=== PATIENT | female | born 1940 | race Hispanic/Latino ===

== ENCOUNTER 2018-12-26 10:50 | Outpatient (CLI) | payer MEDICARE ==
--- NOTE | 2018-12-26 11:54 | Ultrasound Report ---
Left breast ultrasound: Patient was recently diagnosed with right breast cancer. MR scan raises suspicion of possible left breast lesion in the medial breast. Ultrasound of the medial breast fail to identify any persistent echogenic findings to correspond with the MR findings. Impression: No corresponding lesion identified in the medial breast. Recommendation: Following discussions with Dr. Crystal the patient will be scheduled for an MRI directed biopsy.
== END 2018-12-26 10:51 | disposition home or self-care (01) ==
LOC: SPVWC 10:50
PROVIDERS: ATTEND Surgery
DX: C50.411 Malignant neoplasm of upper-outer quadrant of right female breast (principal); I10 Essential (primary) hypertension; Z90.710 Acquired absence of both cervix and uterus

== ENCOUNTER 2018-12-30 08:12 | Outpatient (CLI) | payer MEDICARE ==
--- NOTE | 2018-12-30 10:30 | Mammography Report ---
LEFT DIGITAL DIAGNOSTIC MAMMOGRAM: 12/30/18 08:12:00 CLINICAL: For clip placement immediately status post ultrasound biopsy. COMPARISON:Immediately status post MRI biopsy. FINDINGS: A biopsy clip is now identified in the upper outer quadrant and is concordant with the previously identified lesion. IMPRESSION: Concordant clip placement status post MRI biopsy. BI-RADS CATEGORY: 4--Suspicious Pathology pending.
--- NOTE | 2018-12-30 11:40 | Magnetic Resonance Report ---
MRI GUIDED VACUUM ASSISTED CORE BIOPSY LEFT BREAST: 12/30/18 08:12:00 CLINICAL: Newly diagnosed right breast cancer and a suspicious lesion in the left breast on 12/17/18 MRI. FINDINGS: Consent for the procedure was obtained. A Vibrant dynamic postcontrast series was performed on a 1.5 Lisbeth magnet using an 8 channel [employer] dedicated breast coil. 19 cc of Multihance was injected intravenously without incident and consent was obtained prior to the administration of contrast. The lesion was localized and targeted using [employer] biopsy software. The skin was anesthetized with 1% lidocaine and a small dermatotomy was made. 2% lidocaine was administered for deeper anesthesia. 9-G biopsy was performed with an [employer] vacuum assisted device. Imaging demonstrated satisfactory positioning of the probe and multiple cores were obtained. A clip was placed after confirmation of adequate sampling. The probe was removed and hemostasis was achieved with pressure to the site. A sterile dressing was applied. The patient tolerated the procedure well and there were no apparent complications. A two view mammogram demonstrated concordant clip placement. The patient left the department in good condition with instructions for would care and follow-up. IMPRESSION: Uncomplicated MRI biopsy with clip placement left breast.
== END 2018-12-30 08:13 | disposition home or self-care (01) ==
LOC: SPVIMAG 08:12
PROVIDERS: ATTEND Surgery
DX: C50.212 Malignant neoplasm of upper-inner quadrant of left female breast (principal); I10 Essential (primary) hypertension; I48.91 Unspecified atrial fibrillation; M19.90 Unspecified osteoarthritis, unspecified site; Z90.10 Acquired absence of unspecified breast and nipple; Z79.899 Other long term (current) drug therapy; Z79.01 Long term (current) use of anticoagulants; Z90.710 Acquired absence of both cervix and uterus
CPT/HCPCS: 19085; 77065; 88305; 88341; 88342; A4648; A9577

== ENCOUNTER 2019-02-19 05:45 | Day surgery (SDC) | payer MEDICARE ==
[~2019-02-19 05:45] MED LIST: ANCEF/STERILE WATER 2 GM/20 ML 2 GM/20 ML SYRINGE IV NR
[2019-02-19] MEDS ORDERED: NACL BACTERIOSTATIC INFILTRATI ONE (06:28)
[2019-02-19] MEDS ORDERED: LACTATED RINGERS 1,000 ML IV SCH (07:00)
[2019-02-19] MEDS ORDERED: VERSED IV NR (07:11)
[2019-02-19] MEDS ORDERED: SUBLIMAZE ONE (07:29)
[2019-02-19] MEDS ORDERED: XYLOCAINE MPF 2% ONE (07:29)
[2019-02-19] MEDS ORDERED: DIPRIVAN 10 MG/ML IV ONE (07:30)
[2019-02-19] MEDS ORDERED: XYLOCAINE 1% 20 mL ONE (07:49)
[2019-02-19] MEDS ORDERED: MARCAINE 0.25% INFILTRATI ONE ×3 (07:49→09:02)
[2019-02-19] MEDS ORDERED: DILAUDID IV PRN (08:23)
[2019-02-19] MEDS ORDERED: ZOFRAN IV PRN (08:23)
--- NOTE | 2019-02-19 08:23 | Anesthesia Consultation ---
Anesthesia Consult and Med Hx - Airway Anesthetic Teeth Evaluation: Dentures ROM Head & Neck: Adequate Mental/Hyoid Distance: Adequate Mallampati Class: Class II Intubation Access Assessment: Good - Pulmonary Exam CTA: Yes - Cardiac Exam Cardiac Exam: RRR - Pre-Operative Health Status ASA Pre-Surgery Classification: ASA3 Proposed Anesthetic Plan: General - Pulmonary Hx Smoking: No Hx Respiratory Symptoms: No SOB: Yes (with exertion) - Cardiovascular System Hx Hypertension: Yes Hx Heart Attack/AMI: No Hx Percutaneous Transluminal Coronary Angioplasty (PTCA): No Hx Cardia Arrhythmia: Yes (pA-fib) Hx Valvular Heart Disease: Yes (MVP) - Central Nervous System Hx Seizures: No CVA: No Hx Back Pain: Yes Hx Psychiatric Problems: No - Gastrointestinal Hx Gastroesophageal Reflux Disease: No - Endocrine Hx Renal Disease: No Hx Liver Disease: No Hx Insulin Dependent Diabetes: No Hx Non-Insulin Dependent Diabetes: No Hx Thyroid Disease: No - Hematic Hx Anemia: No - Other Systems Hx Alcohol Use: No Hx Substance Use: No Hx Cancer: Yes (Breast Ca; has not started chemo/xrt) Hx Obesity: Yes
--- NOTE | 2019-02-19 08:23 | Anesthesia Day of Surgery ---
Anesthesia Day of Surgery - Day of Surgery Patient Examined: Yes Patient H&P Reviewed: Yes Patient is NPO: Yes
[2019-02-19] MEDS ORDERED: XYLOCAINE 1% 20 mL INFILTRATI ONE ×2 (09:02)
[2019-02-19] MEDS ORDERED: WATER FOR IRRIG STERILE IR ONE (09:11)
[2019-02-19] MEDS ORDERED: ZOFRAN ONE (09:19)
--- NOTE | 2019-02-19 09:46 | Short Stay Summary ---
Short Stay Documentation Date of service: 02/19/19 - History H&P: obtained from office - Allergies and Medications Current Medications: Allergies No Known Allergies Allergy (Verified 02/18/19 12:58) Home Medications Medication Instructions Recorded Confirmed Last Taken Type Amiodarone HCl [Amiodarone 100 MG 100 mg PO QDAY PRN 01/24/19 02/19/19 01/28/19 History TAB] Aspirin EC [Ecotrin] 325 mg PO QDAY 01/24/19 02/19/19 02/11/19 History Ezetimibe [Zetia] 10 mg PO QDAY 01/24/19 02/18/19 02/18/19 History Metoprolol Xl [Metoprolol 100 mg PO QDAY 01/24/19 02/19/19 02/19/19 05:00 History SUCCINATE ER TAB] hydroCHLOROthiazide [HCTZ] 25 mg PO QDAY 01/24/19 02/19/19 02/18/19 History HYDROcodone/APAP 5-325 [[place] 1 each PO Q6HR PRN #30 tablet 01/29/19 02/18/19 Unknown Rx 5/325] HYDROcodone/APAP 5-325 [[place] 1 each PO Q6HR PRN #15 tablet 02/19/19 Unknown Rx 5/325] Active Medications Hydromorphone HCl (Dilaudid) 0.5 mg IV Q10MIN PRN PRN Reason: Pain , Severe (7-10) Stop: 02/19/19 20:00 Cefazolin Sodium (Ancef/Sterile Water 2 Gm/20 Ml) 2 gm in 20 mls @ 80 mls/hr IV PREOP NR; Protocol Stop: 02/19/19 23:59 Lactated Ringer's (Lactated Ringers) 1,000 mls @ 100 mls/hr IV DIRECT HARRY Last Admin: 02/19/19 07:00 Dose: 100 mls/hr Documented by: Midazolam HCl (Versed) 2 mg IV PREOP NR Stop: 02/19/19 23:59 Last Admin: 02/19/19 07:22 Dose: 2 mg Documented by: Ondansetron HCl (Zofran) 4 mg IV ONCE PRN PRN Reason: Nausea And Vomiting Stop: 02/19/19 10:00 - Brief post op/procedure progress note Date of procedure: 02/19/19 Pre-op diagnosis: Left breast cancer with positive margins Post-op diagnosis: same Procedure: Left breast margin revision Anesthesia: GETA Findings: Lateral and inferior margin revision of left breast Surgeon: TRACEY MO Estimated blood loss: minimal Pathology: list (lateral and inferior margin revision) Specimen disposition: to lab - Disposition Condition at discharge: Good Disposition: DC-01 TO HOME OR SELFCARE Short Stay Discharge Plan Activity: other (no heavy lifting) Diet: regular Wound: keep clean and dry (may shower in 48 hours; no baths, pools or lakes; do not rub or scrub incision) Follow up with: CARRILLO SNYDER MD [Primary Care Provider] - 7 Days TRACEY MO MD [Staff Physician] - 7 Days Prescriptions: HYDROcodone/APAP 5-325 [[place]t 5/325] 1 each PO Q6HR PRN #15 tablet PRN Reason: Pain
--- NOTE | 2019-02-19 09:52 | Operative Report ---
Operative Report Operative Report: Operative Report: Date of Service: February 19, 2019 Preoperative diagnosis:Left breast cancer of the upper outer quadrant Postoperative diagnosis:Same Procedure: Left breast margin revision Surgeon: Claudette Crystal MD Anesthesia: General Findings: Caudal/Inferior and lateral margin revision Complications: None EBL: Minimal Disposition: PACU in good condition Indications for operative procedure: This is a 78 year old lady with newly diagnosed Stage I left breast cancer of the upper outer quadrant, [id number] ER/VT positive and recurrent right breast cancer of the upper outer quadrant, [id number] ER positive. She recently underwent left needle localization partial mastecomy with SLND and right partial mastectomy with SLNB. 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 Recommendations were to proceed with caudal/inferior and lateral margin revision. Patient wished to proceed with the above procedure. Procedure in detail: The patient was taken to the operating room and was placed supine. General anesthesia was administered. The left breast was prepped and draped in the normal sterile operative fashion. Timeout was performed. Skin incision was made through the prior breast incision with a 15 blade knife. Subcutaneous tissues were opened with the aid of the Bovie cautery and knife. Seroma cavity was encountered and suctioned. Hemostasis was noted. Caudal/inferior margin was then revised using the Bovie cautery followed by revision of the lateral margin. No suspicious findings noted. Specimen was marked and sent to pathology-discussed orientation with pathologist Dr. Tidwell. Hemostasis was obtained with the Bovie cautery. Breast cavity was anesthetized with 1% lidocaine mixed with quarter percent Marcaine. The deep breast tissue was approximated and closed using interrupted 3-0 Vicryl and skin brought together and closed using a running 4-0 Monocryl followed by skin affix. She tolerated surgery very well and was awaken from anesthesia without any complications and transported to PACU in good condition.
[2019-02-19 12:06] VITALS: BP 161/73
--- NOTE | 2019-02-19 14:55 | Post Anesthesia Evaluation ---
- Post Anesthesia Evaluation Patient Participated: Yes Airway Patent: Yes Stable Respiratory Function: Yes Nausea/Vomiting: No Temp > 96.8F: Yes Pain Manageable: Yes Adequeate Hydration: No Block Receding Appropriately: Not Applicable Patient on Ventilator: No
== END 2019-02-19 11:05 | disposition home or self-care (01) ==
LOC: OR 05:45
PROVIDERS: ATTEND Surgery
DX: C50.412 Malignant neoplasm of upper-outer quadrant of left female breast (principal); I10 Essential (primary) hypertension; E78.00 Pure hypercholesterolemia, unspecified; I48.91 Unspecified atrial fibrillation; E66.9 Obesity, unspecified; M19.90 Unspecified osteoarthritis, unspecified site; Z80.3 Family history of malignant neoplasm of breast; Z98.890 Other specified postprocedural states; Z79.899 Other long term (current) drug therapy; Z79.82 Long term (current) use of aspirin; Z98.41 Cataract extraction status, right eye; Z98.42 Cataract extraction status, left eye; Z68.30 Body mass index [BMI] 30.0-30.9, adult; Z90.13 Acquired absence of bilateral breasts and nipples; Z90.710 Acquired absence of both cervix and uterus; Z86.2 Personal history of diseases of the blood and blood-forming organs and certain disorders involving the immune mechanism
CPT/HCPCS: 19301; 88307; J0690; J2250; J2405; J2704; J3010; J7120; 88341; 88342

== ENCOUNTER 2020-11-11 07:56 | Outpatient (CLI) | payer MEDICARE ==
--- NOTE | 2020-11-11 08:52 | Mammography Report ---
DIGITAL SCREENING MAMMOGRAM WITH CAD, 11/11/2020 CLINICAL INFORMATION / INDICATION: Routine screening mammography. History of bilateral breast cancer. TECHNIQUE: Digital bilateral 2D mammography was obtained in the craniocaudal and mediolateral obliqu e projections. This examination was interpreted with the benefit of Computer-Aided Detection analysis . COMPARISON: 10/07/2018, 10/14/2019 FINDINGS: Breast Density: The breasts are heterogeneously dense, which may obscure small masses. No dominant mass, suspicious calcifications, or architectural distortion in either breast. Postoperative changes are noted bilaterally. There is mild skin thickening bilaterally which appears unchanged. IMPRESSION: No mammographic evidence of malignancy. Follow up recommendation: Routine yearly BI-RADS Category 2: Benign. A "normal" or negative report should not discourage follow up or biopsy of a clinically significant f inding. A written summary of these findings will be mailed to the patient. The patient will be entered into a mammography reporting system which will generate a reminder letter for the patient's next appointmen t at the appropriate interval. The [employer] recommends yearly mammograms starting at age 40 and continuing as l ed as a woman is in good health. Breast MRI is recommended for women with an approximate 20-25% or greater lifetime risk of breast cancer, including women with a strong family history of breast or ova carlie cancer or who have been treated for Hodgkin's disease. Signer Name: Truman Yanez MD Signed: 11/11/2020 8:47 AM Workstation Name: [email or web address]
== END 2020-11-11 07:57 | disposition home or self-care (01) ==
LOC: SPVWC 07:56
PROVIDERS: ATTEND Surgery
DX: Z12.31 Encounter for screening mammogram for malignant neoplasm of breast (principal)
CPT/HCPCS: 77067

== ENCOUNTER 2021-11-15 08:23 | Outpatient (CLI) | payer MEDICARE ==
--- NOTE | 2021-11-16 11:01 | Mammography Report ---
DIGITAL SCREENING MAMMOGRAM WITH CAD, 11/15/2021 CLINICAL INFORMATION / INDICATION: Routine screening mammography. SCREENING MAMMO Z12.31 TECHNIQUE: Digital bilateral 2D mammography was obtained in the craniocaudal and mediolateral obliqu e projections. This examination was interpreted with the benefit of Computer-Aided Detection analysis . COMPARISON: 11/11/2020 and 10/14/2019 FINDINGS: Breast Density: There are scattered areas of fibroglandular density. No dominant mass, suspicious calcifications, or architectural distortion in either breast. Bilateral scarring again noted. IMPRESSION: No mammographic evidence of malignancy. Follow up recommendation: Routine yearly BI-RADS Category 2: BENIGN. A "normal" or negative report should not discourage follow up or biopsy of a clinically significant f inding. A written summary of these findings will be mailed to the patient. The patient will be entered into a mammography reporting system which will generate a reminder letter for the patient's next appointmen t at the appropriate interval. The [employer] recommends yearly mammograms starting at age 40 and continuing as l ed as a woman is in good health. Breast MRI is recommended for women with an approximate 20-25% or greater lifetime risk of breast cancer, including women with a strong family history of breast or ova carlie cancer or who have been treated for Hodgkin's disease. Signer Name: Atul Trujillo MD Signed: 11/16/2021 9:50 AM Workstation Name: [email or web address]
== END 2021-11-15 08:24 | disposition home or self-care (01) ==
LOC: SPVWC 08:23
PROVIDERS: ATTEND Hospitalist
DX: Z12.31 Encounter for screening mammogram for malignant neoplasm of breast (principal); N64.89 Other specified disorders of breast
CPT/HCPCS: 77067